=== PATIENT | male | born 1995 | race African-American/Black ===

== ENCOUNTER 2021-03-23 18:09 | Emergency (ER) | payer OTHER ==
[~2021-03-23] VITALS: Ht 193 cm; Wt 97.5 kg
[2021-03-23] MEDS ORDERED: DOXYCYCLINE 10100 MG PO (18:45)
[2021-03-23] MEDS ORDERED: NAPROSYN500 MG PO (18:45)
[2021-03-23 18:50] VITALS: BP 129/78
== END 2021-03-23 18:50 | disposition home or self-care (01) ==
LOC: M.ERS 18:09
DX: L03.317 Cellulitis of buttock (principal); Z88.8 Allergy status to other drugs, medicaments and biological substances